=== PATIENT | male | born 1970 | race Caucasian/White ===

== ENCOUNTER → 2020-12-19 | Outpatient (CLI) | payer MEDICARE, OTHER | LOC: RAD 16:41 | DX: M25.552 Pain in left hip (principal); M54.5 Low back pain; M25.512 Pain in left shoulder; M47.816 Spondylosis without myelopathy or radiculopathy, lumbar region; M19.012 Primary osteoarthritis, left shoulder; Z87.81 Personal history of (healed) traumatic fracture | CPT/HCPCS: 72110; 73030; 73502 ==